=== PATIENT | female | born 1950 | race Caucasian/White ===

== ENCOUNTER → 2020-02-02 | Outpatient (CLI) | payer OTHER ==
[~2020-02-02] MED LIST: ASCO-96 PO; ASPI-650 PO; ATOR10TA9 PO; CALC0.25 PO; CHOL500050 PO; ESTR0.5T PO; LACT1CAP35 PO; ONDA8TAB9 PO; OXYC5CAP2 PO; PROG100C16 PO
== END | disposition home or self-care (01) ==
LOC: CFH 09:06
PROVIDERS: ATTEND Surgery
DX: M85.80 Other specified disorders of bone density and structure, unspecified site (principal)
CPT/HCPCS: 77080